=== PATIENT | female | born 1950 | race Asian ===

== ENCOUNTER 2019-01-06 23:58 | Emergency (ER) | payer OTHER, MEDICARE ==
[~2019-01-06] VITALS: Ht 165.1 cm; Wt 64.0 kg
[2019-01-07 00:31] LABS: BASOPHILS % 1.1 % (0.0-2.0); EOSINOPHILS % 2.4 % (0.0-5.0); HEMATOCRIT. 43.9 % (36.0-48.0); HEMOGLOBIN. 14.5 g/dL (12.0-16.0); LYMPHOCYTES % 34.9 % (20.0-50.0); MEAN CORPUSCULAR HEMOGLOBIN 28.4 pg (28.0-32.0); MEAN CORPUSCULAR VOLUME 85.8 fL (81.0-99.0); MEAN PLATELET VOLUME 11.1 fl (7.4-10.4); MONOCYTES % 8.3 % (2.0-8.0); NEUTROPHILS % 53.3 % (40.0-76.0); PLATELET 127 x1000/uL (130-400); RED BLOOD CELL COUNT 5.12 mill/uL (4.2-5.4); RED CELL DISTRIBUTION WIDTH 13.1 % (11.6-14.6)
[2019-01-07 00:33] LABS: CHLORIDE 108 mEq/L (98-107)
[2019-01-07 00:40] LABS: LDL CHOLESTEROL 120 mg/dL (5-100)
[2019-01-07 00:42] LABS: HDL CHOLESTEROL 63 mg/dL (40-59)
[2019-01-07 01:12] VITALS: BP 154/87
== END 2019-01-07 01:12 | disposition home or self-care (01) ==
LOC: ER 23:58
DX: R42 Dizziness and giddiness (principal); I10 Essential (primary) hypertension
CPT/HCPCS: 36415; 80061; 84484; 93005; 99284

== ENCOUNTER 2023-06-22 11:40 | Emergency (ER) | payer MEDICAID, MEDICARE, OTHER ==
[~2023-06-22] VITALS: Ht 154.9 cm; Wt 50.0 kg
[2023-06-22 11:43] VITALS: TEMP 98.1; O2SAT 99
[2023-06-22 13:10] VITALS: BP 138/60; PULSE 55; RESP 16
== END 2023-06-22 13:15 | disposition home or self-care (01) ==
LOC: ER 11:40
DX: M54.50 Low back pain, unspecified (principal); I10 Essential (primary) hypertension
CPT/HCPCS: 72148; 99284